=== PATIENT | male | born 1995 | race Native Hawaiian/Other Pacific Islander ===

== ENCOUNTER 2020-03-22 15:44 | Emergency (ER) | payer OTHER ==
[~2020-03-22] VITALS: Ht 175.3 cm; Wt 79.4 kg
[2020-03-22 15:54] VITALS: TEMP 98
[2020-03-22 16:47] VITALS: BP 144/84
== END 2020-03-22 16:26 | disposition home or self-care (01) ==
LOC: ED 15:44
DX: S05.01XA Injury of conjunctiva and corneal abrasion without foreign body, right eye, initial encounter (principal); H10.89 Other conjunctivitis; W22.8XXA Striking against or struck by other objects, initial encounter; Y92.89 Other specified places as the place of occurrence of the external cause
CPT/HCPCS: 99283